=== PATIENT | female | born 1995 | race Caucasian/White ===

== ENCOUNTER 2017-01-12 21:23 | Emergency (ER) | payer OTHER ==
[~2017-01-12] VITALS: Ht 162.5 cm; Wt 88.5 kg
[~2017-01-12 21:23] MED LIST: AMOXICILLIN500 MG PO; AMOXIL500 MG PO; CEPHALEXIN500 M1 PO; KEFLEX500 M1 PO; MOTRIN400 MG PO; MOTRIN600 MG PO; MULTI VITAMINS1 TAB; NAPROSYN500 MG PO; NKHM; NORCO 325 MG-51 TAB PO; PEN-VK500 MG PO; PHENERGAN W/DM120 ML PO; SUDAFED30 MG PO; TRAMADOL HCL50 MG PO; TRIMOX,POLYMOX250 MG PO; TYLENOL W/ CODE1 TAB PO; ULTRAM50 MG PO; ZOVIRAX400 MG PO
[2017-01-12] MEDS ORDERED: AUGMENTIN 875875 MG PO (22:05)
== END 2017-01-12 22:11 | disposition home or self-care (01) ==
LOC: ED 21:23
DX: H65.93 Unspecified nonsuppurative otitis media, bilateral (principal); Z90.49 Acquired absence of other specified parts of digestive tract

== ENCOUNTER 2017-02-11 13:58 | Emergency (ER) | payer OTHER ==
[~2017-02-11] VITALS: Ht 162.5 cm; Wt 86.2 kg
[~2017-02-11 13:58] MED LIST changes: +AUGMENTIN 875875 MG PO
[2017-02-11] MEDS ORDERED: ROBITUSSIN DM 105 ML PO (14:14)
[2017-02-11] MEDS ORDERED: PREDNISONE10 MG PO (14:14)
[2017-02-11] MEDS ORDERED: CLARITIN10 MG PO (14:14)
[2017-02-11] MEDS ORDERED: FLONASE ALLERG9.9 ML NAS (14:14)
== END 2017-02-11 15:03 | disposition home or self-care (01) ==
LOC: ED 13:58
DX: J01.90 Acute sinusitis, unspecified (principal); R03.0 Elevated blood-pressure reading, without diagnosis of hypertension

== ENCOUNTER → 2017-07-18 | Outpatient (CLI) | payer OTHER ==
[~2017-07-18] MED LIST changes: +APRI 28 DAY TA1 EACH PO; +Bromocriptine2.5 MG PO; +CLARITIN10 MG PO; +FLONASE ALLERG9.9 ML NAS; +MAGNESIUM250 M1 PO; +PREDNISONE10 MG PO; +PROPRANOLOL HCL10 MG PO; +ROBITUSSIN DM 105 ML PO
[2017-07-18 11:14] LABS: BUN 7 mg/dl (7-24); CHLORIDE 108 mmol/L (98-107); CREATININE 0.55 mg/dL (0.55-1.02); FREE T4 0.83 ng/dl (0.76-1.46); POTASSIUM 3.9 mmol/L (3.5-5.1); SODIUM 140 mmol/L (136-145)
[2017-07-19 10:04] LABS: PROLACTIN 004465 29.3 ng/mL (4.8-23.3); THYROID PEROXIDASE (TPO) AB 9 IU/mL (0-34)
[2017-07-19 15:07] LABS: THYROGLOBULIN ANTIBODY <1.0 IU/mL (0.0-0.9)
[2017-07-20 00:03] LABS: INSULIN-LIKE GROWTH FACTOR-1 250 ng/mL (.)
== END | disposition home or self-care (01) ==
LOC: LAB 10:11
PROVIDERS: Internal Medicine
DX: D35.2 Benign neoplasm of pituitary gland (principal); E04.9 Nontoxic goiter, unspecified; G43.909 Migraine, unspecified, not intractable, without status migrainosus

== ENCOUNTER → 2017-07-25 | Outpatient (CLI) | payer OTHER | END | disposition home or self-care (01) | LOC: MAMMO 01:15 | DX: Z12.31 Encounter for screening mammogram for malignant neoplasm of breast (principal) ==

== ENCOUNTER 2017-07-30 19:17 | Emergency (ER) | payer OTHER ==
[~2017-07-30] VITALS: Ht 162.5 cm; Wt 90.7 kg
[~2017-07-30 19:17] MED LIST changes: -APRI 28 DAY TA1 EACH PO; -Bromocriptine2.5 MG PO; -MAGNESIUM250 M1 PO; -PROPRANOLOL HCL10 MG PO
[2017-07-30] MEDS ORDERED: MAGNESIUM250 M1 PO (19:22)
[2017-07-30] MEDS ORDERED: APRI 28 DAY TA1 EACH PO (19:23)
[2017-07-30] MEDS ORDERED: PROPRANOLOL HCL10 MG PO (19:23)
[2017-07-30] MEDS ORDERED: Bromocriptine2.5 MG PO (19:23)
== END 2017-07-30 20:41 | disposition home or self-care (01) ==
LOC: ED 19:17
DX: M79.672 Pain in left foot (principal); Z90.89 Acquired absence of other organs; Z79.899 Other long term (current) drug therapy

== ENCOUNTER 2018-01-03 17:41 | Emergency (ER) | payer OTHER ==
[~2018-01-03] VITALS: Wt 90.7 kg
[~2018-01-03 17:41] MED LIST changes: +AMOXICILLIN500 M2 PO; +APRI 28 DAY TA1 EACH PO; +Bromocriptine2.5 MG PO; +CORTISPORIN SUS10 ML OT; +MAGNESIUM250 M1 PO; +OMNICEF300 MG PO; +PROPRANOLOL HCL10 MG PO
[2018-01-03] MEDS ORDERED: NAPROSYN500 MG PO (17:58)
== END 2018-01-03 20:38 | disposition home or self-care (01) ==
LOC: ED
DX: S90.31XA Contusion of right foot, initial encounter (principal); R03.0 Elevated blood-pressure reading, without diagnosis of hypertension; Z79.899 Other long term (current) drug therapy; W22.8XXA Striking against or struck by other objects, initial encounter; Y93.89 Activity, other specified; Y92.89 Other specified places as the place of occurrence of the external cause; Y99.8 Other external cause status

== ENCOUNTER 2018-02-19 16:10 | Emergency (ER) | payer OTHER ==
[~2018-02-19] VITALS: Wt 54.4 kg
[2018-02-19 16:41] LABS: BILIRUBIN NEGATIVE (NEGATIVE); BLOOD NEGATIVE (NEGATIVE); CLARITY CLEAR (CLEAR); COLOR YELLOW (YELLOW); GLUCOSE NEGATIVE (NEGATIVE); KETONE NEGATIVE (NEGATIVE); LEUKO ESTERASE 1+ (NEGATIVE); NITRITE NEGATIVE (NEGATIVE); SPECIFIC GRAVITY <= 1.005 (1.005-1.030); UROBILINOGEN 0.2 E.U./dl (0.2-1.0)
[2018-02-19 17:05] LABS: BACTERIA 3+; RBC 0-2 rbc/hpf (0-2)
[2018-02-19 17:07] LABS: BASO % 0.6 % (0.0-1.0); EOS # 0.1 10*3/uL (0.0-0.4); EOS % 2.1 % (1.0-4.0); HEMATOCRIT 36.8 % (37.0-47.0); LYMPH # 2.4 10*3/uL (1.3-4.4); LYMPH % 38.5 % (27.0-41.0); MEAN CELL VOLUME 84.2 fl (81.0-99.0); MEAN CORPUSCULAR HGB 29.7 pg (27.0-31.0); MEAN CORPUSCULAR HGB CONC 35.3 g/dl (33.0-37.0); MEAN PLATELET VOLUME 8.9 fl (9.6-12.3); MONO # 0.3 10*3/uL (0.1-1.0); MONO % 4.8 % (3.0-9.0); NEUT # 3.4 10*3/uL (2.3-7.9); NEUT % 53.7 % (47.0-73.0); PLATELET COUNT AUTOMATED 302 10*3/uL (130-400); RED BLOOD COUNT 4.37 10*6/uL (4.10-5.10); RED CELL DISTRI WIDTH 12.1 % (0-14.5); WHITE BLOOD COUNT 6.3 10*3/uL (4.8-10.8)
[2018-02-19 17:24] LABS: ALBUMIN 3.7 gm/dl (3.1-4.5); ALKALINE PHOSPHATASE 69 U/L (45-117); BUN 6 mg/dl (7-24); CHLORIDE 107 mmol/L (98-107); CREATININE 0.61 mg/dL (0.55-1.02); LIPASE 145 U/L (73-393); POTASSIUM 3.6 mmol/L (3.5-5.1); SGOT/AST 24 IU/L (3-35); SGPT/ALT 55 U/L (12-78); SODIUM 140 mmol/L (136-145); TOTAL PROTEIN 7.2 gm/dL (6.4-8.2)
[2018-02-19] MEDS ORDERED: ZOFRAN4 MG PO (18:52)
[2018-02-19] MEDS ORDERED: AMINOPHYLLIN200 MG PO (18:52)
== END 2018-02-19 19:15 | disposition home or self-care (01) ==
LOC: ED 16:10
PROVIDERS: Nurse Practitioner Family
DX: K29.70 Gastritis, unspecified, without bleeding (principal); N39.0 Urinary tract infection, site not specified; Z79.899 Other long term (current) drug therapy

== ENCOUNTER → 2018-03-07 | Outpatient (CLI) | payer OTHER ==
[~2018-03-07] MED LIST changes: +AMINOPHYLLIN200 MG PO; +PYRIDIUM200 M1 PO; +SEPTDS PO; +ZOFRAN4 MG PO
== END | disposition home or self-care (01) ==
LOC: RESCLI 11:42
DX: E66.9 Obesity, unspecified (principal); H65.197 Other acute nonsuppurative otitis media recurrent, unspecified ear; H60.509 Unspecified acute noninfective otitis externa, unspecified ear; Z76.89 Persons encountering health services in other specified circumstances; Z88.8 Allergy status to other drugs, medicaments and biological substances; Z90.49 Acquired absence of other specified parts of digestive tract

== ENCOUNTER 2018-04-09 10:00 | Emergency (ER) | payer OTHER ==
[~2018-04-09] VITALS: Ht 162.5 cm; Wt 102.1 kg
[~2018-04-09 10:00] MED LIST changes: -PYRIDIUM200 M1 PO; -SEPTDS PO
== END 2018-04-09 11:25 | disposition home or self-care (01) ==
LOC: ED 10:00
DX: J06.9 Acute upper respiratory infection, unspecified (principal); B27.90 Infectious mononucleosis, unspecified without complication; E66.9 Obesity, unspecified; Z79.899 Other long term (current) drug therapy; Z79.2 Long term (current) use of antibiotics

== ENCOUNTER 2018-05-10 16:27 | Emergency (ER) | payer OTHER ==
[~2018-05-10] VITALS: Ht 162.5 cm; Wt 99.8 kg
== END 2018-05-10 18:09 | disposition home or self-care (01) ==
LOC: ED 16:27
DX: S90.31XA Contusion of right foot, initial encounter (principal); Z79.899 Other long term (current) drug therapy; W01.0XXA Fall on same level from slipping, tripping and stumbling without subsequent striking against object, initial encounter; Y93.89 Activity, other specified; Y92.89 Other specified places as the place of occurrence of the external cause; Y99.8 Other external cause status

== ENCOUNTER → 2018-05-16 | Outpatient (CLI) | payer OTHER ==
[~2018-05-16] MED LIST changes: +PYRIDIUM200 M1 PO; +SEPTDS PO
== END | disposition home or self-care (01) ==
LOC: RESCLI 13:15
DX: E66.01 Morbid (severe) obesity due to excess calories (principal); R60.0 Localized edema; H65.197 Other acute nonsuppurative otitis media recurrent, unspecified ear; H60.509 Unspecified acute noninfective otitis externa, unspecified ear; Q23.0 Congenital stenosis of aortic valve; R03.0 Elevated blood-pressure reading, without diagnosis of hypertension; Z88.8 Allergy status to other drugs, medicaments and biological substances

== ENCOUNTER → 2018-06-06 | Outpatient (CLI) | payer OTHER | END | disposition home or self-care (01) | LOC: MRI 10:00 | DX: D35.2 Benign neoplasm of pituitary gland (principal) ==

== ENCOUNTER → 2018-06-26 | Outpatient (CLI) | payer OTHER | END | disposition home or self-care (01) | LOC: CARD 14:44 | DX: R60.0 Localized edema (principal) ==

== ENCOUNTER 2018-08-07 12:11 | Emergency (ER) | payer SELFPAY ==
[~2018-08-07] VITALS: Ht 162.5 cm; Wt 108.0 kg
[~2018-08-07 12:11] MED LIST changes: -PYRIDIUM200 M1 PO; -SEPTDS PO
[2018-08-07] MEDS ORDERED: PYRIDIUM200 M1 PO (12:28)
[2018-08-07] MEDS ORDERED: SEPTDS PO (12:28)
[2018-08-07 12:47] LABS: BILIRUBIN NEGATIVE (NEGATIVE); BLOOD NEGATIVE (NEGATIVE); CLARITY SL CLOUDY (CLEAR); COLOR YELLOW (YELLOW); GLUCOSE NEGATIVE (NEGATIVE); KETONE NEGATIVE (NEGATIVE); LEUKO ESTERASE TRACE (NEGATIVE); NITRITE NEGATIVE (NEGATIVE); PH 6.5 (5.0-9.0); SPECIFIC GRAVITY <= 1.005 (1.005-1.030); UROBILINOGEN 0.2 E.U./dl (0.2-1.0)
[2018-08-07 13:00] LABS: BACTERIA TRACE
== END 2018-08-07 13:16 | disposition home or self-care (01) ==
LOC: ED 12:11
PROVIDERS: Physician Assistant
DX: R30.0 Dysuria (principal); M54.9 Dorsalgia, unspecified; Z79.899 Other long term (current) drug therapy

== ENCOUNTER 2018-10-17 16:51 | Emergency (ER) | payer SELFPAY ==
[~2018-10-17] VITALS: Ht 162.5 cm; Wt 106.6 kg
[~2018-10-17 16:51] MED LIST changes: +PYRIDIUM200 M1 PO; +SEPTDS PO
== END 2018-10-17 19:25 | disposition home or self-care (01) ==
LOC: ED 16:51
DX: S62.175A Nondisplaced fracture of trapezium [larger multangular], left wrist, initial encounter for closed fracture (principal); M79.642 Pain in left hand; Z79.899 Other long term (current) drug therapy; W10.8XXA Fall (on) (from) other stairs and steps, initial encounter; Y93.01 Activity, walking, marching and hiking; Y92.89 Other specified places as the place of occurrence of the external cause; Y99.8 Other external cause status

== ENCOUNTER → 2018-10-24 | Outpatient (CLI) | payer SELFPAY | END | disposition home or self-care (01) | LOC: ORTHO 03:13 | DX: M79.642 Pain in left hand (principal); S62.512D Displaced fracture of proximal phalanx of left thumb, subsequent encounter for fracture with routine healing; X58.XXXD Exposure to other specified factors, subsequent encounter ==

== ENCOUNTER → 2018-11-23 | Outpatient (CLI) | payer SELFPAY | END | disposition home or self-care (01) | LOC: ORTHO 00:48 | DX: S62.175D Nondisplaced fracture of trapezium [larger multangular], left wrist, subsequent encounter for fracture with routine healing (principal); X58.XXXD Exposure to other specified factors, subsequent encounter ==

== ENCOUNTER 2019-01-22 16:23 | Emergency (ER) | payer SELFPAY ==
[~2019-01-22] VITALS: Ht 162.5 cm; Wt 108.9 kg
--- NOTE | ~2019-01-22 | EKG ---
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
[2019-01-22 16:54] LABS: BILIRUBIN NEGATIVE (NEGATIVE); BLOOD NEGATIVE (NEGATIVE); CLARITY SL CLOUDY (CLEAR); COLOR YELLOW (YELLOW); GLUCOSE NEGATIVE (NEGATIVE); KETONE NEGATIVE (NEGATIVE); LEUKO ESTERASE NEGATIVE (NEGATIVE); NITRITE NEGATIVE (NEGATIVE); SPECIFIC GRAVITY 1.025 (1.005-1.030); UROBILINOGEN 0.2 E.U./dl (0.2-1.0)
[2019-01-22 17:00] LABS: BASO # 0.1 10*3/uL (0.0-0.1); BASO % 0.7 % (0.0-1.0); EOS # 0.2 10*3/uL (0.0-0.4); HEMATOCRIT 38.2 % (37.0-47.0); HEMOGLOBIN 12.9 g/dl (12.0-16.0); LYMPH % 39.8 % (27.0-41.0); MEAN CELL VOLUME 85.5 fl (81.0-99.0); MEAN CORPUSCULAR HGB 28.9 pg (27.0-31.0); MEAN CORPUSCULAR HGB CONC 33.8 g/dl (33.0-37.0); MEAN PLATELET VOLUME 9.1 fl (9.6-12.3); MONO # 0.5 10*3/uL (0.1-1.0); MONO % 6.7 % (3.0-9.0); NEUT # 3.9 10*3/uL (2.3-7.9); NEUT % 50.5 % (47.0-73.0); PLATELET COUNT AUTOMATED 351 10*3/uL (130-400); RED BLOOD COUNT 4.47 10*6/uL (4.10-5.10); RED CELL DISTRI WIDTH 12.2 % (0-14.5); WHITE BLOOD COUNT 7.6 10*3/uL (4.8-10.8)
[2019-01-22 17:06] LABS: BACTERIA 3+
[2019-01-22 17:13] LABS: BUN 13 mg/dl (7-24); CHLORIDE 108 mmol/L (98-107); CREATININE 0.91 mg/dL (0.55-1.02); POTASSIUM 3.7 mmol/L (3.5-5.1); SODIUM 140 mmol/L (136-145)
[2019-01-22 17:19] LABS: B-hCG (QUALITATIVE) NEGATIVE (NEGATIVE)
== END 2019-01-22 17:58 | disposition home or self-care (01) ==
LOC: ED 16:23
PROVIDERS: Emergency Medicine
DX: J06.9 Acute upper respiratory infection, unspecified (principal); H72.91 Unspecified perforation of tympanic membrane, right ear; Z79.899 Other long term (current) drug therapy

== ENCOUNTER 2019-04-30 17:04 | Emergency (ER) | payer SELFPAY ==
[~2019-04-30] VITALS: Ht 162.5 cm; Wt 108.9 kg
[2019-04-30] MEDS ORDERED: NAPROSYN500 MG PO (18:35)
== END 2019-04-30 18:42 | disposition home or self-care (01) ==
LOC: ED 17:04
DX: M79.662 Pain in left lower leg (principal); R58 Hemorrhage, not elsewhere classified; L53.9 Erythematous condition, unspecified; Z88.2 Allergy status to sulfonamides; Z79.899 Other long term (current) drug therapy

== ENCOUNTER 2019-06-30 14:33 | Emergency (ER) | payer SELFPAY ==
[~2019-06-30] VITALS: Ht 162.5 cm
== END 2019-06-30 21:29 | disposition home or self-care (01) ==
LOC: ED 14:33
DX: S66.912A Strain of unspecified muscle, fascia and tendon at wrist and hand level, left hand, initial encounter (principal); Z79.899 Other long term (current) drug therapy; X58.XXXA Exposure to other specified factors, initial encounter; Y93.89 Activity, other specified; Y92.89 Other specified places as the place of occurrence of the external cause; Y99.8 Other external cause status

== ENCOUNTER 2019-08-24 22:39 | Emergency (ER) | payer SELFPAY ==
[2019-08-24 23:39] LABS: BASO % 0.4 % (0.0-1.0); EOS # 0.2 10*3/uL (0.0-0.4); EOS % 2.8 % (1.0-4.0); HEMATOCRIT 36.8 % (37.0-47.0); LYMPH # 3.2 10*3/uL (1.3-4.4); LYMPH % 43.7 % (27.0-41.0); MEAN CELL VOLUME 83.6 fl (81.0-99.0); MEAN CORPUSCULAR HGB 28.4 pg (27.0-31.0); MEAN PLATELET VOLUME 9.1 fl (9.6-12.3); MONO # 0.5 10*3/uL (0.1-1.0); MONO % 7.4 % (3.0-9.0); NEUT # 3.3 10*3/uL (2.3-7.9); NEUT % 45.6 % (47.0-73.0); PLATELET COUNT AUTOMATED 358 10*3/uL (130-400); RED CELL DISTRI WIDTH 12.2 % (0-14.5); WHITE BLOOD COUNT 7.2 10*3/uL (4.8-10.8)
[2019-08-24 23:50] LABS: ACT PARTIAL THROMBO TIME 24.5 SECONDS (20.0-32.1)
[2019-08-24 23:54] LABS: BUN 16 mg/dl (7-24); CHLORIDE 108 mmol/L (98-107); CREATININE 0.78 mg/dL (0.55-1.02); POTASSIUM 3.4 mmol/L (3.5-5.1); SODIUM 140 mmol/L (136-145)
[2019-08-25] MEDS ORDERED: Motrin,Rufen800 MG PO (00:28)
== END 2019-08-25 00:38 | disposition home or self-care (01) ==
LOC: ED 22:39
PROVIDERS: Emergency Medicine Emergency Medical Services
DX: M71.22 Synovial cyst of popliteal space [Baker], left knee (principal); M79.605 Pain in left leg; Z79.899 Other long term (current) drug therapy

== ENCOUNTER 2019-09-19 10:26 | Emergency (ER) | payer SELFPAY ==
[~2019-09-19] VITALS: Ht 162.5 cm; Wt 104.3 kg
[~2019-09-19 10:26] MED LIST changes: +Motrin,Rufen800 MG PO
== END 2019-09-19 10:54 | disposition home or self-care (01) ==
LOC: ED 10:26
DX: R09.81 Nasal congestion (principal); Z79.899 Other long term (current) drug therapy

== ENCOUNTER 2019-10-10 10:23 | Emergency (ER) | payer MEDICAID ==
[~2019-10-10] VITALS: Wt 102.1 kg
[2019-10-10 11:11] LABS: CLARITY CLEAR (CLEAR); COLOR YELLOW (YELLOW)
[2019-10-10 11:12] LABS: BILIRUBIN NEGATIVE; BLOOD NEGATIVE (NEGATIVE); GLUCOSE NEGATIVE; KETONE 2+; LEUKO ESTERASE NEGATIVE (NEGATIVE); NITRITE NEGATIVE (NEGATIVE); RBC 0-2 rbc/hpf (0-2); WBC 0-2 wbc/hpf (0-5)
[2019-10-10 11:13] LABS: BASO % 0.3 % (0.0-1.0); EOS # 0.1 10*3/uL (0.0-0.4); EOS % 0.8 % (1.0-4.0); HEMATOCRIT 40.2 % (37.0-47.0); LYMPH # 3.2 10*3/uL (1.3-4.4); LYMPH % 30.8 % (27.0-41.0); MEAN CELL VOLUME 82.2 fl (81.0-99.0); MEAN CORPUSCULAR HGB 27.8 pg (27.0-31.0); MEAN CORPUSCULAR HGB CONC 33.8 g/dl (33.0-37.0); MEAN PLATELET VOLUME 9.3 fl (9.6-12.3); MONO # 0.5 10*3/uL (0.1-1.0); MONO % 4.5 % (3.0-9.0); NEUT # 6.6 10*3/uL (2.3-7.9); NEUT % 63.3 % (47.0-73.0); PLATELET COUNT AUTOMATED 374 10*3/uL (130-400); RED BLOOD COUNT 4.89 10*6/uL (4.10-5.10); WHITE BLOOD COUNT 10.4 10*3/uL (4.8-10.8)
[2019-10-10 11:30] LABS: ALBUMIN 4.6 gm/dl (3.1-4.5); ALKALINE PHOSPHATASE 58 U/L (45-117); BUN 9 mg/dl (7-24); CHLORIDE 106 mmol/L (98-107); CREATININE 0.65 mg/dL (0.55-1.02); LIPASE 134 U/L (73-393); POTASSIUM 3.4 mmol/L (3.5-5.1); SGOT/AST 20 IU/L (3-35); SGPT/ALT 36 U/L (12-78); SODIUM 136 mmol/L (136-145); TOTAL PROTEIN 8.8 gm/dL (6.4-8.2)
== END 2019-10-10 11:48 | disposition home or self-care (01) ==
LOC: ED 10:23
PROVIDERS: Emergency Medicine
DX: O21.9 Vomiting of pregnancy, unspecified (principal); O26.891 Other specified pregnancy related conditions, first trimester; Z3A.01 Less than 8 weeks gestation of pregnancy; Z79.899 Other long term (current) drug therapy

== ENCOUNTER 2019-10-28 21:19 | Emergency (ER) | payer MEDICAID ==
[~2019-10-28] VITALS: Ht 162.5 cm; Wt 99.8 kg
[2019-10-28 21:54] LABS: BASO % 0.2 % (0.0-1.0); EOS % 0.3 % (1.0-4.0); HEMATOCRIT 39.1 % (37.0-47.0); LYMPH # 2.3 10*3/uL (1.3-4.4); MEAN CELL VOLUME 83.7 fl (81.0-99.0); MEAN CORPUSCULAR HGB 28.5 pg (27.0-31.0); MONO # 0.7 10*3/uL (0.1-1.0); MONO % 5.1 % (3.0-9.0); NEUT # 9.8 10*3/uL (2.3-7.9); NEUT % 76.1 % (47.0-73.0); PLATELET COUNT AUTOMATED 334 10*3/uL (130-400); RED BLOOD COUNT 4.67 10*6/uL (4.10-5.10); RED CELL DISTRI WIDTH 12.3 % (0-14.5); WHITE BLOOD COUNT 12.9 10*3/uL (4.8-10.8)
[2019-10-28 22:13] LABS: ALBUMIN 4.3 gm/dl (3.1-4.5); ALKALINE PHOSPHATASE 47 U/L (45-117); BUN 6 mg/dl (7-24); CHLORIDE 108 mmol/L (98-107); CREATININE 0.59 mg/dL (0.55-1.02); LIPASE 93 U/L (73-393); POTASSIUM 3.5 mmol/L (3.5-5.1); SGOT/AST 11 IU/L (3-35); SGPT/ALT 28 U/L (12-78); SODIUM 139 mmol/L (136-145)
[2019-10-28 22:21] LABS: BILIRUBIN NEGATIVE; BLOOD NEGATIVE (NEGATIVE); CLARITY CLOUDY (CLEAR); COLOR YELLOW (YELLOW); GLUCOSE NEGATIVE; KETONE 3+; LEUKO ESTERASE TRACE (NEGATIVE); NITRITE NEGATIVE (NEGATIVE); SPECIFIC GRAVITY > 1.030 (1.001-1.030)
[2019-10-28 22:22] LABS: BACTERIA 1+; EPITHELIAL CELLS 16-20
== END 2019-10-28 23:27 | disposition home or self-care (01) ==
LOC: ED 21:19
PROVIDERS: Nurse Practitioner Family
DX: O21.0 Mild hyperemesis gravidarum (principal); Z3A.01 Less than 8 weeks gestation of pregnancy; Z79.899 Other long term (current) drug therapy; Z87.891 Personal history of nicotine dependence

== ENCOUNTER → 2019-10-30 | Outpatient (CLI) | payer MEDICAID | END | disposition home or self-care (01) | LOC: US 08:21 | PROVIDERS: ATTEND Nurse Practitioner Women's Health | DX: O46.90 Antepartum hemorrhage, unspecified, unspecified trimester (principal); Z3A.00 Weeks of gestation of pregnancy not specified ==

== ENCOUNTER 2019-12-25 05:44 | Emergency (ER) | payer OTHER ==
[~2019-12-25] VITALS: Ht 162.5 cm; Wt 97.1 kg
[2019-12-25 06:36] LABS: BILIRUBIN Negative (Negative); BLOOD Negative (Negative); CLARITY Clear (Clear); COLOR Yellow (Yellow); GLUCOSE Negative (Negative); KETONE Negative (Negative); LEUKO ESTERASE Negative (Negative); NITRITE Negative (Negative); PH 7.5 (4.5-8.0); UROBILINOGEN 0.2 E.U./dl (0.0-1.0)
[2019-12-25 06:51] LABS: RBC 0-2 rbc/hpf (0-2); WBC 0-2 wbc/hpf (0-5)
== END 2019-12-25 07:04 | disposition home or self-care (01) ==
LOC: ED 05:44
PROVIDERS: Internal Medicine
DX: R52 Pain, unspecified (principal)

== ENCOUNTER → 2020-03-27 | Outpatient (CLI) | payer OTHER | END | disposition home or self-care (01) | LOC: LAB 08:07 | PROVIDERS: ATTEND Nurse Practitioner Women's Health | DX: R73.09 Other abnormal glucose (principal) ==

== ENCOUNTER 2022-07-27 16:19 | Emergency (ER) | payer OTHER | END 2022-07-27 17:46 | disposition left against medical advice (07) | LOC: ED 16:19 | DX: M79.601 Pain in right arm (principal); Z53.21 Procedure and treatment not carried out due to patient leaving prior to being seen by health care provider ==

== ENCOUNTER 2023-04-08 18:03 | Emergency (ER) | payer SELFPAY ==
[~2023-04-08] VITALS: Ht 160 cm; Wt 95.3 kg
[2023-04-08 18:31] LABS: BILIRUBIN Negative (Negative); BLOOD Negative (Negative); CLARITY Clear (Clear); COLOR Yellow (Yellow); GLUCOSE Negative (Negative); KETONE Negative (Negative); LEUKO ESTERASE Negative (Negative); NITRITE Negative (Negative); PH 7.5 (4.5-8.0); UROBILINOGEN 0.2 E.U./dl (0.0-1.0)
[2023-04-08 18:37] LABS: BACTERIA 1+
[2023-04-08 19:29] LABS: BASO # 0.1 10*3/uL (0.0-0.1); BASO % 0.7 % (0.0-1.0); EOS # 0.7 10*3/uL (0.0-0.4); EOS % 10.9 % (1.0-4.0); HEMATOCRIT 34.1 % (37.0-47.0); LYMPH # 2.4 10*3/uL (1.3-4.4); LYMPH % 34.8 % (27.0-41.0); MEAN CELL VOLUME 85.3 fl (81.0-99.0); MEAN CORPUSCULAR HGB 28.3 pg (27.0-31.0); MEAN CORPUSCULAR HGB CONC 33.1 g/dl (33.0-37.0); MONO # 0.4 10*3/uL (0.1-1.0); MONO % 5.3 % (3.0-9.0); NEUT # 3.3 10*3/uL (2.3-7.9); NEUT % 48.2 % (47.0-73.0); PLATELET COUNT AUTOMATED 277 10*3/uL (130-400); RED CELL DISTRI WIDTH 12.2 % (0-14.5); WHITE BLOOD COUNT 6.8 10*3/uL (4.8-10.8)
[2023-04-08 19:51] LABS: ALKALINE PHOSPHATASE 41 U/L (46-116); BUN 7 mg/dl (9-23); CHLORIDE 108 mmol/L (98-107); LIPASE 36 U/L (12-53); POTASSIUM 3.8 mmol/L (3.4-5.1); SGPT/ALT 13 U/L (5-49); TOTAL PROTEIN 6.6 gm/dL (6.0-8.0)
[2023-04-08 19:52] LABS: BETA-HCG, QUANT < 3.0 mIU/mL (3-10)
== END 2023-04-08 21:21 | disposition home or self-care (01) ==
LOC: ED 18:03
PROVIDERS: Internal Medicine; Nurse Practitioner Family
DX: R10.9 Unspecified abdominal pain (principal); R30.0 Dysuria; F41.9 Anxiety disorder, unspecified; R10.2 Pelvic and perineal pain; Z98.890 Other specified postprocedural states

== ENCOUNTER 2023-11-20 16:35 | Emergency (ER) | payer SELFPAY ==
[~2023-11-20] VITALS: Ht 165.1 cm; Wt 88.5 kg
[2023-11-20] MEDS ORDERED: LORazepam 0.5 MG TAB PO ONE (17:35)
[2023-11-20 17:47] LABS: BASO % 0.4 % (0.0-1.0); EOS # 0.3 10*3/uL (0.0-0.4); EOS % 2.8 % (1.0-4.0); HEMATOCRIT 37.2 % (37.0-47.0); LYMPH # 2.2 10*3/uL (1.3-4.4); LYMPH % 22.1 % (27.0-41.0); MEAN CORPUSCULAR HGB 29.6 pg (27.0-31.0); MEAN CORPUSCULAR HGB CONC 35.2 g/dl (33.0-37.0); MEAN PLATELET VOLUME 9.3 fl (9.6-12.3); MONO # 0.5 10*3/uL (0.1-1.0); MONO % 5.1 % (3.0-9.0); NEUT % 69.4 % (47.0-73.0); PLATELET COUNT AUTOMATED 281 10*3/uL (130-400); RED BLOOD COUNT 4.43 10*6/uL (4.10-5.10); RED CELL DISTRI WIDTH 12.6 % (0-14.5); WHITE BLOOD COUNT 10.1 10*3/uL (4.8-10.8)
[2023-11-20 18:16] LABS: BUN 6 mg/dl (9-23); CHLORIDE 108 mmol/L (98-107); POTASSIUM 3.5 mmol/L (3.4-5.1)
== END 2023-11-20 19:05 | disposition home or self-care (01) ==
LOC: ED 16:35
PROVIDERS: Physician Assistant Medical
DX: F41.9 Anxiety disorder, unspecified (principal); R07.89 Other chest pain; R06.02 Shortness of breath; F32.A Depression, unspecified; Z98.890 Other specified postprocedural states

== ENCOUNTER 2024-03-29 15:32 | Emergency (ER) | payer SELFPAY ==
[~2024-03-29] VITALS: Ht 162.5 cm; Wt 88.5 kg
[2024-03-29] MEDS ORDERED: SERTRALINE HYD100 MG PO (16:07)
[2024-03-29] MEDS ORDERED: BUPROPION HYDR100 M3 PO (16:07)
[2024-03-29] MEDS ORDERED: ACETAMINOPHEN 325 MG TAB PO ONE (16:15)
== END 2024-03-29 17:55 | disposition home or self-care (01) ==
LOC: ED 15:32
DX: S93.602A Unspecified sprain of left foot, initial encounter (principal); Z98.890 Other specified postprocedural states; W01.0XXA Fall on same level from slipping, tripping and stumbling without subsequent striking against object, initial encounter; Y93.89 Activity, other specified; Y92.009 Unspecified place in unspecified non-institutional (private) residence as the place of occurrence of the external cause; Y99.8 Other external cause status

== ENCOUNTER 2024-05-10 17:07 | Emergency (ER) | payer SELFPAY ==
[~2024-05-10] VITALS: Ht 162.5 cm; Wt 90.7 kg
[~2024-05-10 17:07] MED LIST changes: +BUPROPION HYDR100 M3 PO; +SERTRALINE HYD100 MG PO
[2024-05-10] MEDS ORDERED: SEPTDS PO (17:38)
== END 2024-05-10 18:04 | disposition home or self-care (01) ==
LOC: ED 17:07
DX: L05.01 Pilonidal cyst with abscess (principal); Z79.899 Other long term (current) drug therapy

== ENCOUNTER 2024-12-27 15:44 | Emergency (ER) | payer SELFPAY ==
[~2024-12-27] VITALS: Ht 162.5 cm; Wt 97.5 kg
[2024-12-27] MEDS ORDERED: SEPTDS PO (16:30)
[2024-12-27] MEDS ORDERED: Sulfamethoxazole/Trimethopri 1 TAB TAB PO ONE (16:35)
== END 2024-12-27 16:44 | disposition home or self-care (01) ==
LOC: ED 15:44
DX: L05.91 Pilonidal cyst without abscess (principal); F41.9 Anxiety disorder, unspecified; Z87.19 Personal history of other diseases of the digestive system; Z87.440 Personal history of urinary (tract) infections